=== PATIENT | female | born 1990 | race African-American/Black ===

== ENCOUNTER 2021-09-12 16:18 | Emergency (ER) | payer MEDICAID ==
[~2021-09-12] VITALS: Ht 165.1 cm; Wt 92.0 kg
[2021-09-12 17:18] LABS: BASOPHILS % 0.8 % (0.0-2.0); EOSINOPHILS % 2.4 % (0.0-5.0); HEMATOCRIT. 38.2 % (36.0-48.0); HEMOGLOBIN. 13.1 g/dL (12.0-16.0); LYMPHOCYTES % 40.7 % (20.0-50.0); MEAN CORPUSCULAR HEMOGLOBIN 27.2 pg (28.0-32.0); MEAN CORPUSCULAR VOLUME 79.4 fL (81.0-99.0); MEAN PLATELET VOLUME 7.9 fl (7.4-10.4); MONOCYTES % 5.5 % (2.0-8.0); NEUTROPHILS % 50.6 % (40.0-76.0); PLATELET 274 x1000/uL (130-400); RED BLOOD CELL COUNT 4.81 mill/uL (4.2-5.4); RED CELL DISTRIBUTION WIDTH 14.6 % (11.6-14.6)
[2021-09-12 17:23] LABS: CHLORIDE 109 mEq/L (98-107)
[2021-09-12 17:26] LABS: CLARITY URINE CLOUDY (CLEAR); COLOR URINE YELLOW (YELLOW); KETONES URINE TRACE (NEGATIVE); LEUKOCYTE ESTERASE URINE NEGATIVE (NEGATIVE); NITRITE URINE NEGATIVE (NEGATIVE); OCCULT BLOOD URINE NEGATIVE (NEGATIVE); PROTEIN URINE NEGATIVE (NEGATIVE); SPECIFIC GRAVITY URINE 1.023 (1.005-1.030); UROBILINOGEN URINE 0.2 E.U./dL (0.2-1.0)
[2021-09-12 17:27] LABS: HCG SCREEN NEGATIVE
[2021-09-12 17:34] LABS: B-HCG QUANTITATIVE < 1 mIU/mL (<3)
[2021-09-12] MEDS ORDERED: DIPH25TA62 MT (18:16)
[2021-09-12] MEDS ORDERED: NAPR-1176 MT (18:16)
[2021-09-12 18:24] VITALS: BP 147/75
== END 2021-09-12 18:25 | disposition home or self-care (01) ==
LOC: ER 16:18
DX: N93.9 Abnormal uterine and vaginal bleeding, unspecified (principal); M79.18 Myalgia, other site
CPT/HCPCS: 36415; 76830; 76856; 80053; 81003; 81025; 84702; 84703; 85025; 86850; 86900; 99284